=== PATIENT | female | born 1985 | race Two or more races ===

== ENCOUNTER 2017-11-18 11:58 | Outpatient (CLI) | payer OTHER | END 2017-11-18 12:11 | disposition home or self-care (01) | LOC: RAD 501 11:58 | DX: K64.4 Residual hemorrhoidal skin tags (principal); K62.89 Other specified diseases of anus and rectum; K64.0 First degree hemorrhoids ==

== ENCOUNTER 2017-12-01 05:45 | Day surgery (SDC) | payer OTHER ==
[~2017-12-01 05:45] MED LIST: GEMFIBROZIL600 MG PO; SYNTHROID88 MCG PO
[2017-12-01] MEDS ORDERED: COLACE100 MG PO (08:47)
[2017-12-01] MEDS ORDERED: PERCOCET 5-3251 EACH PO (08:47)
== END 2017-12-01 12:40 | disposition home or self-care (01) ==
LOC: CIR.AMB 05:45
DX: K64.4 Residual hemorrhoidal skin tags (principal)

== ENCOUNTER → 2023-06-29 10:22 | Outpatient (CLI) | payer OTHER ==
[~2023-06-29 10:22] MED LIST changes: +COLACE100 MG PO; +PERCOCET 5-3251 EACH PO
[2023-06-29 13:09] LABS: ALBUMIN 4.1 gm/dL (3.4-5.0); BILIRUBIN TOTAL 0.22 mg/dL (0.3-1.2); CALCIUM 8.9 mg/dL (8.5-10.1); CHOL HDL RATIO 4.5 (0-5.0); CREATININE SERUM 0.68 mg/dL (0.55-1.02); FREE TRIODOTIRONINE 2.03 pg/ml (2.18-3.98); GFR 96.83; GLOBULINA 3.2 G/DL (2.4-3.5); POTASSIUM 4.49 mEq/L (3.5-5.1); T4 FREE 1.2 NG/ML (0.76-1.46); TOTAL PROTEIN 7.3 gm/dL (6.4-8.2); TSH 1.6 uIU/mL (0.358-3.74)
[2023-06-29 13:13] LABS: URINE APPEARANCE Clear; URINE BACTERIA 482.5 uL (0.0-1933); URINE BILIRRUBIN Negative (NEGATIVE); URINE BLOOD Small; URINE COLOR Yellow; URINE EPITHELIAL CELLS 12.5 uL (0.0-38.8); URINE GLUCOSE Negative (NEGATIVE); URINE LEUKOCYTE Negative; URINE NITRATE Negative; URINE PROTEIN Negative (NEGATIVE); URINE RBC 45.1 uL (0.0-20.8); URINE UROBILINOGEN 0.2 E.U./dl; URINE WBC 3.5 uL (0.0-23.2)
[2023-06-29 13:29] LABS: HEMATOCRIT 35.8 % (36.0-45.00); HEMOGLOBIN 12.1 g/dL (12.0-15.00); MEAN CELL VOLUME 84.2 fL (80.00-100.00); MEAN CORPUSCULAR HEMOGLOBIN 28.4 pg (27.00-32.0); MEAN CORPUSCULAR HGB CONC 33.8 g/dl (32.0-36.0); PLATELET COUNT 404 K/uL (150-450); RED BLOOD COUNT 4.26 M/uL (4.00-6.00); RED CELL DISTRIBUTION WIDTH 14.2 % (11.5-14.5)
== END | disposition home or self-care (01) ==
LOC: LAB 10:22
PROVIDERS: ATTEND General Practice
DX: D50.8 Other iron deficiency anemias (principal); N39.0 Urinary tract infection, site not specified; E11.42 Type 2 diabetes mellitus with diabetic polyneuropathy; E78.2 Mixed hyperlipidemia; E76.219 Morquio mucopolysaccharidoses, unspecified; E03.8 Other specified hypothyroidism; E55.9 Vitamin D deficiency, unspecified; E05.00 Thyrotoxicosis with diffuse goiter without thyrotoxic crisis or storm

== ENCOUNTER 2024-12-06 11:08 | Outpatient (CLI) | payer OTHER ==
[2024-12-06 11:38] LABS: BASO % 0.9 % (0.1-1.2); EOS # 0.12 (0.04-0.54); EOS % 2.1 % (0.7-7.0); LYMPH # 1.47 (1.18-3.74); LYMPH % 25.9 % (19.3-53.1); MEAN PLATELET VOLUME 8.90 fl (9.4-12.4); MONO # 0.41 (0.24-0.82); MONO % 7.2 % (4.7-12.5); NEUT # 3.62 (1.56-6.13); NEUT % 63.7 % (34.0-71.1); RED CELL DISTRIBUTION WIDTH 13.2 % (11.6-14.4)
[2024-12-06 12:28] LABS: URINE APPEARANCE Cloudy; URINE BILIRRUBIN Negative (NEGATIVE); URINE BLOOD Negative; URINE COLOR Yellow; URINE GLUCOSE Negative (NEGATIVE); URINE KETONE Trace (NEGATIVE); URINE LEUKOCYTE Negative; URINE NITRATE Negative; URINE PROTEIN Negative (NEGATIVE); URINE UROBILINOGEN 0.2 E.U./dl
[2024-12-06 12:34] LABS: URINE BACTERIA 1527.4 uL (0.0-1933); URINE EPITHELIAL CELLS 33.9 uL (0.0-38.8); URINE RBC 20.2 uL (0.0-20.8); URINE WBC 5.5 uL (0.0-23.2)
[2024-12-06 12:43] LABS: ALT/SGPT 19.0 U/L (12-78); AST/SGOT 7.0 U/L (15-37); BILIRUBIN TOTAL 0.36 mg/dL (0.3-1.2); BUN CREA RATIO 10.0 (7.0-25.0); CHOL HDL RATIO 6.5 (0-5.0); CREATININE SERUM 0.73 mg/dL (0.55-1.02); GFR 88.75; GLOBULINA 3.3 G/DL (2.4-3.5); GLUCOSE FASTING 88.0 mg/dL (65-100); HDL 34.0 mg/dl (40-60); LDL 138.0 mg/dl (0-130); OSMOLALITY SERUM 281.0 MOSM/KG (275-295); TSH 0.552 uIU/mL (0.358-3.74); VLDL 49.0 (0-39)
[2024-12-06 12:53] LABS: URINE CAST 0.43 uL (0.0-1.40)
== END 2024-12-06 11:11 | disposition home or self-care (01) ==
LOC: LAB 11:08
PROVIDERS: ATTEND Specialist
DX: D50.8 Other iron deficiency anemias (principal); N39.0 Urinary tract infection, site not specified; E11.42 Type 2 diabetes mellitus with diabetic polyneuropathy; E78.2 Mixed hyperlipidemia; E03.8 Other specified hypothyroidism; E55.9 Vitamin D deficiency, unspecified; E21.0 Primary hyperparathyroidism; E50.8 Other manifestations of vitamin A deficiency; E27.2 Addisonian crisis; E05.00 Thyrotoxicosis with diffuse goiter without thyrotoxic crisis or storm; E06.3 Autoimmune thyroiditis; E22.1 Hyperprolactinemia; E28.2 Polycystic ovarian syndrome; E29.1 Testicular hypofunction

== ENCOUNTER 2024-12-06 12:35 | Outpatient (CLI) | payer OTHER | END 2024-12-06 12:38 | disposition home or self-care (01) | LOC: SONOGRAMA 12:35 | PROVIDERS: ATTEND Specialist | DX: E04.1 Nontoxic single thyroid nodule (principal); L04.0 Acute lymphadenitis of face, head and neck ==